=== PATIENT | male | born 1985 | race Caucasian/White ===

== ENCOUNTER 2018-11-07 18:05 | Emergency (ER) | payer MEDICAID ==
[~2018-11-07] VITALS: Ht 172.7 cm; Wt 70.3 kg
--- NOTE | 2018-11-07 19:13 | NUR ---
pt sleeping, eyes closed, sbar report to agustin naranjo
[2018-11-07 19:21] LABS: BASOPHILS % (AUTO) 0.3 % (0.0-2.0); EOSINOPHILS % (AUTO) 0.2 % (0.0-7.0); HEMATOCRIT 40.9 % (36.7-47.1); LYMPHOCYTES # (AUTO) 1.5 K/uL (20.0-40.0); LYMPHOCYTES % (AUTO) 29.7 % (20.5-51.5); MEAN CORPUSCULAR HEMOGLOBIN 30.4 uug (23.8-33.4); MEAN CORPUSCULAR HGB CONC 34 g/dL (32.5-36.3); MEAN CORPUSCULAR VOLUME 88.9 fL (73.0-96.2); MONOCYTES # (AUTO) 0.4 K/uL (2.0-10.0); NEUTROPHILS # (AUTO) 3.1 K/uL (1.8-8.9); NEUTROPHILS % (AUTO) 61.8 % (38.5-71.5); PLATELET COUNT (AUTO) 247 K/uL (152-348)
[2018-11-07 19:27] LABS: CARBON DIOXIDE 25 mmol/L (21-32); CHLORIDE 101 mmol/L (98-107); CREATININE 1.1 mg/dL (0.6-1.3); GLUCOSE 78 mg/dL (74-106); POTASSIUM 3.7 mmol/L (3.5-5.1); UREA NITROGEN, BLOOD 16 mg/dL (7-18)
[2018-11-07 19:32] LABS: ALANINE AMINOTRANSFERASE 671 U/L (16-63); ALKALINE PHOSPHATASE 93 U/L (50-136); ASPARTATE AMINOTRANSFERASE 323 U/L (15-37); BILIRUBIN,DIRECT 0.1 mg/dL (0.0-0.2); BILIRUBIN,TOTAL 0.3 mg/dL (0.2-1.0); TOTAL PROTEIN, SERUM 7.3 g/dL (6.4-8.2)
[2018-11-07 19:33] LABS: ACETAMINOPHEN < 2.0 ug/mL (10-30); ETHANOL 332 MG/DL (0-0)
--- NOTE | 2018-11-07 19:40 | NUR ---
Patient is resting comfortably in bed with eyes closed
--- NOTE | 2018-11-07 22:04 | NUR ---
Patient is resting comfortably in bed with eyes closed
--- NOTE | 2018-11-07 23:37 | NUR ---
Patient is resting comfortably in bed with eyes closed
--- NOTE | 2018-11-07 23:57 | NUR ---
Patient awake, requesting food/drink, provided.
[2018-11-08 00:27] VITALS: BP 126/80
--- NOTE | 2018-11-08 00:27 | NUR ---
Patient discharged to home in stable conditon. Written and verbal after care instructions given. Patient verbalizes understanding of instructions.
== END 2018-11-08 00:28 | disposition home or self-care (01) ==
LOC: ER 18:08
DX: F10.129 Alcohol abuse with intoxication, unspecified (principal); Z88.5 Allergy status to narcotic agent; F19.90 Other psychoactive substance use, unspecified, uncomplicated
CPT/HCPCS: 36415; 80048; 80076; 85025; 99283; G0480 ×2; G0481; A4663